=== PATIENT | female | born 1995 | race Caucasian/White ===

== ENCOUNTER 2017-07-12 10:39 | Emergency (ER) | payer SELFPAY ==
[~2017-07-12] VITALS: Ht 182.9 cm; Wt 65.8 kg
[~2017-07-12 10:39] MED LIST: LEVO500T2 PO; ONDA-42 SL; PHEN-640 PO
[2017-07-12] MEDS ORDERED: LACTATED RINGERS 1,000 ML IV ONE (12:37)
[2017-07-12] MEDS ORDERED: ONDANSETRON 4 MG/2 ML (SDV) Z0FRAN IVP ONE (12:45)
--- NOTE | 2017-07-12 12:45 | ED GI ---
General Chief Complaint: Abdominal/GI Problems Stated Complaint: N/V/D/UNTREATED CUT ON RIGHT KNEE Nursing Triage Note: PT REPORTS N/V/D STARTING AT 1999 YESTERDAY. PT REPORTS SHE HAS HAD 3 SIMILIAR EPISODES WITHIN THE LAST 2 MONTHS. Sepsis Screen: No Definite Risk Source of Information: Patient, Family (mom) Exam Limitations: No Limitations History of Present Illness Date Seen by Provider: Jul 12, 2017 Time Seen by Provider: 12:30 Initial Comments Patient presents to ER by private conveyance with a chief complaint that for the past couple days she's been having watery diarrhea, right knee pain where a week ago she cut open her knee after a fall and nausea and vomiting and she feels weak and tired and cannot keep fluids or food down. She's been having these episodes for her to 3 days at a time of nausea vomiting and diarrhea every 2 weeks for the past 3 months. First she thought it was just a bug like the flu but she's had no cough congestion, rhinorrhea, nasal congestion, fever. She has had malaise and chills and feels like she has a fever though. She has not taken anything for nor she had any workup done yet for this. She has a Mirena in that was recently traded out in March 2017 after the first one had been in for 5 years. Since that time she's had several episodes of bacterial vaginosis but she's had STI checks were negative. She is in a monogamous relationship and does not use condoms. She says she does not smoke cigarettes and only drinks occasionally every couple weeks. She does smoke marijuana however. When she has the nausea and vomiting episode she experiences quite a bit of epigastric pain. She has no other medical history or abdominal surgical history of significance. She does however have a history of having her bladder stretched because she had a lot of UTIs when she was a child. She also had asthma as a child but has not used inhalers for many years. Other than the Flagyl she has not been on any antibiotics in the past several months. Allergies and Home Medications Allergies Coded Allergies: No Known Drug Allergies (Unverified , 07/18/14) Home Medications Levofloxacin 500 Mg Tablet, 500 MG PO DAILY, #10 Prescribed by: BRIAN SANCHEZ on 02/15/152029 Ondansetron 4 Mg Tab.rapdis, 4 MG PO Q6H PRN for NAUSEA/VOMITING, #8 Ref 0 Prescribed by: KAMLA HAMMOND on 07/12/17 1430 Phenazopyridine HCl 200 Mg Tablet, 1 TAB PO TID, #15 Prescribed by: BRIAN SANCHEZ on 02/15/15 2030 Review of Systems Constitutional: chills, No fever, malaise EENTM: No Blurred Vision, No Double Vision Respiratory: Denies Cough, Denies Shortness of Air, Denies Wheezing Cardiovascular: Denies Chest Pain, Denies Edema, Denies Palpitations, Denies Syncope Gastrointestinal: See HPI, Denies Abdomen Distended, Abdominal Pain, Denies Constipated, Diarrhea, Nausea, Poor Fluid Intake, Vomiting Genitourinary: Denies Burning, Denies Discharge Musculoskeletal: No back pain, No joint pain Past Shslrmp-Eobkwh-Gzbccd Hx Patient Social History Alcohol Use: Rarely Uses Recreational Drug Use: No Smoking Status: Never a Smoker Recent Foreign Travel: No Contact w/Someone Who Travel: No Recent Infectious Disease Expo: No Immunizations Up To Date Tetanus Booster (TDap): More than 5yrs Seasonal Allergies Seasonal Allergies: No Surgeries History of Surgeries: Yes (R SHOULDER) Surgeries: Bladder Surgery Respiratory History of Respiratory Disorde: No Cardiovascular History of Cardiac Disorders: No Neurological History of Neurological Disord: No Reproductive System WALLPAPERER History: IUD Genitourinary Genitourinary Disorders: Bladder Infection Gastrointestinal History of Gastrointestinal Di: No Musculoskeletal History of Musculoskeletal Dis: No 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") HEENT History of HEENT Disorders: No Cancer History of Cancer: No Psychosocial History of Psychiatric Problem: No Integumentary History of Skin or Integumenta: No Blood Transfusions History of Blood Disorders: No Physical Exam Vital Signs VS - Last 72 Hours, by Label 07/12/17 11:31 Temp 97.9 Pulse 56 Resp 18 B/P (MAP) 133/65 (87) Pulse Ox 100 Capillary Refill : Less Than 3 Seconds General Appearance: no apparent distress, thin HEENT: PERRL/EOMI, normal ENT inspection, pharynx normal (oral mucosa is mildly dry) Respiratory: lungs clear, normal breath sounds, no respiratory distress, no accessory muscle use Cardiovascular: normal peripheral pulses, regular rate, rhythm, no edema Peripheral Pulses: 2+ Dorsalis Pedis (R), 2+ Left Dors-Pedis (L) Gastrointestinal: normal bowel sounds, soft, no organomegaly, tenderness (mild epigastric tenderness to palpation) Extremities: non-tender, normal inspection, no pedal edema, no calf tenderness Neurologic/Psychiatric: alert, normal mood/affect, oriented x 3 Skin: normal color, warm/dry Laceration Repair : Wound Location: Lower Extremities (right knee) Other Wound Location Right knee infrapatellar prepatellar fat pad laceration Wound Length (cm): 3 Wound's Depth, Shape: sub Q Wound Explored: contaminated Irrigated w/ Saline (ccs): 100 Betadine Prep?: Yes (and chlorhexidine soap water) Anesthesia: 1% Lidocaine Volume Anesthetic (ccs): 3 Wound Debrided: moderate Progress Wound was soaked with chlorhexidine soap water and then a large amount of a cellular debris/scabs/lint from her pants as well as a scant amount of purulence was removed. Wound was then infiltrated with lidocaine 1% 3 cc when the patient was numb went ahead and aggressively irrigated and explored the wound and found it was just in the prepatellar fat pad and not any deeper. Tendons and ligaments were not seen. Wound was irrigated with copious amounts of chlorhexidine normal saline and then dressed with a Band-Aid. We will allow the wound to heal by secondary intent Progress/Results/Core Measures Results/Orders Lab Results Laboratory Tests Test 07/12/17 11:50 07/12/17 11:58 07/12/17 12:30 Range/Units White Blood Count 14.1 H 4.3-11.0 10^3/uL Red Blood Count 5.06 4.35-5.85 10^6/uL Hemoglobin 15.9 11.5-16.0 G/DL Hematocrit 46 35-52 % Mean Corpuscular Volume 91 80-99 FL Mean Corpuscular Hemoglobin 31 25-34 PG Mean Corpuscular Hemoglobin Concent 35 32-36 G/DL Red Cell Distribution Width 12.9 10.0-14.5 % Platelet Count 284 130-400 10^3/uL Mean Platelet Volume 10.6 H 7.4-10.4 FL Neutrophils (%) (Auto) 89 H 42-75 % Lymphocytes (%) (Auto) 7 L 12-44 % Monocytes (%) (Auto) 3 0-12 % Eosinophils (%) (Auto) 1 0-10 % Basophils (%) (Auto) 0 0-10 % Neutrophils # (Auto) 12.5 H 1.8-7.8 X 10^3 Lymphocytes # (Auto) 1.0 1.0-4.0 X 10^3 Monocytes # (Auto) 0.4 0.0-1.0 X 10^3 Eosinophils # (Auto) 0.2 0.0-0.3 10^3/uL Basophils # (Auto) 0.0 0.0-0.1 10^3/uL Neutrophils % (Manual) 91 % Lymphocytes % (Manual) 5 % Monocytes % (Manual) 3 % Eosinophils % (Manual) 1 % Basophils % (Manual) 0 % Band Neutrophils 0 % Blood Morphology Comment NORMAL Erythrocyte Sedimentation Rate 1 0-20 MM/HR Sodium Level 138 135-145 MMOL/L Potassium Level 3.8 3.6-5.0 MMOL/L Chloride Level 104 98-107 MMOL/L Carbon Dioxide Level 24 21-32 MMOL/L Anion Gap 10 5-14 MMOL/L Blood Urea Nitrogen 10 7-18 MG/DL Creatinine 0.75 0.60-1.30 MG/DL Estimat Glomerular Filtration Rate > 60 BUN/Creatinine Ratio 13 Glucose Level 101 70-105 MG/DL Calcium Level 9.6 8.5-10.1 MG/DL Magnesium Level 2.1 1.8-2.4 MG/DL Total Bilirubin 1.4 H 0.1-1.0 MG/DL Aspartate Amino Transf (AST/SGOT) 19 5-34 U/L Alanine Aminotransferase (ALT/SGPT) 18 0-55 U/L Alkaline Phosphatase 72 40-136 U/L C-Reactive Protein High Sensitivity 0.13 0.00-0.50 MG/DL Total Protein 7.8 6.4-8.2 GM/DL Albumin 4.6 H 3.2-4.5 GM/DL Lipase < 4 L 8-78 U/L Urine Color YELLOW Urine Clarity CLEAR Urine pH 6 5-9 Urine Specific [place] 1.010 L 1.016-1.022 Urine Protein NEGATIVE NEGATIVE Urine Glucose (UA) NEGATIVE NEGATIVE Urine Ketones 2+ H NEGATIVE Urine Nitrite NEGATIVE NEGATIVE Urine Bilirubin NEGATIVE NEGATIVE Urine Urobilinogen NORMAL NORMAL MG/DL Urine Leukocyte Esterase 2+ H NEGATIVE Urine RBC (Auto) NEGATIVE NEGATIVE Urine RBC 2-5 H /HPF Urine WBC 0-2 /HPF Urine Squamous Epithelial Cells >50 H /HPF Urine Crystals NONE /LPF Urine Bacteria NEGATIVE /HPF Urine Casts NONE /LPF Urine Mucus NEGATIVE /LPF Urine Culture Indicated NO Urine Test NEGATIVE NEGATIVE Urine Opiates Screen NEGATIVE NEGATIVE Urine Oxycodone Screen NEGATIVE NEGATIVE Urine Methadone Screen NEGATIVE NEGATIVE Urine Propoxyphene Screen NEGATIVE NEGATIVE Urine Barbiturates Screen NEGATIVE NEGATIVE Ur Tricyclic Antidepressants Screen NEGATIVE NEGATIVE Urine Phencyclidine Screen NEGATIVE NEGATIVE Urine Amphetamines Screen NEGATIVE NEGATIVE Urine Methamphetamines Screen NEGATIVE NEGATIVE Urine Benzodiazepines Screen NEGATIVE NEGATIVE Urine Cocaine Screen NEGATIVE NEGATIVE Urine Cannabinoids Screen POSITIVE H NEGATIVE Micro Results Microbiology 07/12/17 Fecal Leukocyte Stain - Final, Resulted 07/12/17 Stool Culture, Resulted Pending My Orders Orders - KAMLA HAMMOND Cbc With Automated Diff (07/12/17 12:37) Comprehensive Metabolic Panel (07/12/17 12:37) Hs C Reactive Protein (07/12/17 12:37) Drug Screen Stat (Urine) (07/12/17 12:37) Hcg,Qualitative Urine (07/12/17 12:37) Magnesium (07/12/17 12:37) Ua Culture If Indicated (07/12/17 12:37) Stool Culture (07/12/17 12:37) Fecal Wbc (07/12/17 12:37) Erythrocyte Sedimentation Rate (07/12/17 12:37) Parasite Scrn Stool Giard Cryp (07/12/17 12:37) Saline Lock/Iv-Start (07/12/17 12:37) Lactated Ringers (Lr 1000 Ml Iv Solution (07/12/17 12:37) Ondansetron Injection (Zofran Injectio (07/12/17 12:45) Lipase (07/12/17 12:37) Manual Differential (07/12/17 11:50) Lidocaine 1% (Xylocaine 1%) (07/12/17 13:30) Medications Given in ED Current Medications Medications Dose Ordered Sig/Yadira Route Start Time Stop Time Status Last Admin Dose Admin Lactated Ringer's 1,000 ml @ 0 mls/hr Q0M ONCE IV 07/12/17 12:37 07/12/17 12:40 DC 07/12/17 12:49 0 MLS/HR Lidocaine HCl 50 ml ONCE ONCE IJ 07/12/17 13:30 07/12/17 13:31 DC 07/12/17 13:49 6 ML Ondansetron HCl 4 mg ONCE ONCE IVP 07/12/17 12:45 07/12/17 12:46 DC 07/12/17 12:49 4 MG Vital Signs/I&O Vital Sign - Last 12Hours 07/12/17 11:31 Temp 97.9 Pulse 56 Resp 18 B/P (MAP) 133/65 (87) Pulse Ox 100 Blood Pressure Mean: 87 Progress Note : Time: 12:45 Progress Note CBC and CMP as well as lipase. CMP which showed she had elevated liver enzymes he should think about hepatitis. Regular some fluids and Zofran to treat her symptoms. We have discussed the use of marijuana and cyclical vomiting syndrome' s. As far as her recurrent bacterial vaginosis have recommended that her partner wear condoms. Infectious diarrhea seems less likely however this is been going on for 3 months send for cultures and white blood cells. Departure Impression Impression: Primary Impression: Wound infection, posttraumatic Disposition: HOME, SELF-CARE Condition: Improved Departure-Patient Inst. Referrals: NO,LOCAL PHYSICIAN (PCP) Primary Care Physician VALENTIN CASTANEDA (Family) Primary Care Physician Patient Instructions: Diarrhea in Adolescents and Adults Add. Discharge Instructions: Drink plenty of fluids and eat a bland diet consisting of high fiber foods such as bananas, rice, applesauce and toast. Keep the wound clean with soap and water at least daily and change the dressing whenever becomes soiled or at least daily. Do not use antiseptics on your wound. If it becomes more red or starts to have drainage from it or you develop fevers you should follow-up with your primary care physician. Plan to follow up in the next 1-2 weeks with your primary care physician to follow up the results of the stool studies obtained today. You may also use Imodium 2 tablets to start and then one tablet every 4 hours afterwards until you get the diarrhea under control. If you're nausea comes back then you can take one tablet of Zofran and place it on your tongue and allow it to absorb through your mouth every 6 hours as needed. Follow-up the rest of your stool studies with your primary care physician. All discharge instructions reviewed with patient and/or family. Voiced understanding. Scripts Ondansetron (Ondansetron Odt) 4 Mg Tab.italia 4 MG PO Q6H Y for NAUSEA/VOMITING, #8 TAB 0 Refills Prov: KAMLA HAMMOND 07/12/17 Work/School Note: School/Childcare Release Date Seen in the Emergency Department: Jul 12, 2017 Time Dismissed from Emergency Department: 14:30 Return to School: Jul 14, 2017 Restrictions: No Restrictions KAMLA HAMMOND Jul 12, 2017 12:45
[2017-07-12 12:47] LABS: BILIRUBIN,URINE NEGATIVE (NEGATIVE); CLARITY,URINE CLEAR; COLOR,URINE YELLOW; GLUCOSE, URINE (UA) NEGATIVE (NEGATIVE); KETONES,URINE 2+ (NEGATIVE); LEUKOCYTE ESTERASE ,URINE 2+ (NEGATIVE); NITRITE,URINE NEGATIVE (NEGATIVE); PH,URINE 6 (5-9); PROTEIN,URINE NEGATIVE (NEGATIVE); UROBILINOGEN,URINE NORMAL (NORMAL)
[2017-07-12 12:47] LABS: BASOPHILS % (AUTO) 0 % (0-10); EOSINOPHILS # (AUTO) 0.2 10^3/uL (0.0-0.3); EOSINOPHILS % (AUTO) 1 % (0-10); HEMATOCRIT 46 % (35-52); HEMOGLOBIN 15.9 G/DL (11.5-16.0); LYMPHOCYTES % (AUTO) 7 % (12-44); MEAN CORPUSCULAR HEMOGLOBIN 31 PG (25-34); MEAN CORPUSCULAR HGB CONC 35 G/DL (32-36); MEAN CORPUSCULAR VOLUME 91 FL (80-99); MEAN PLATELET VOLUME 10.6 FL (7.4-10.4); MONOCYTES # (AUTO) 0.4 X 10^3 (0.0-1.0); MONOCYTES % (AUTO) 3 % (0-12); NEUTROPHILS # (AUTO) 12.5 X 10^3 (1.8-7.8); NEUTROPHILS % (AUTO) 89 % (42-75); PLATELET COUNT 284 10^3/uL (130-400); RED BLOOD COUNT 5.06 10^6/uL (4.35-5.85); RED CELL DISTRIBUTION WIDTH 12.9 % (10.0-14.5); WHITE BLOOD COUNT 14.1 10^3/uL (4.3-11.0)
[2017-07-12 12:48] LABS: HCG,QUALITATIVE URINE NEGATIVE (NEGATIVE)
[2017-07-12 12:54] LABS: BACTERIA,URINE NEGATIVE /HPF; WBC,URINE 0-2 /HPF
[2017-07-12 12:55] LABS: SQUAMOUS EPITHELIAL CELL,UR >50 /HPF
[2017-07-12 12:57] LABS: AMPHETAMINE SCREEN, URINE NEGATIVE (NEGATIVE); BARBITURATE SCREEN URINE NEGATIVE (NEGATIVE); BENZODIAZEPINES SCREEN URINE NEGATIVE (NEGATIVE); CANNABINOID SCREEN, URINE POSITIVE (NEGATIVE); COCAINE SCREEN URINE NEGATIVE (NEGATIVE); METHADONE STAT NEGATIVE (NEGATIVE); METHAMPHETAMINE SCREEN URINE S NEGATIVE (NEGATIVE); OPIATE SCREEN URINE NEGATIVE (NEGATIVE); OXYCODONE STAT NEGATIVE (NEGATIVE); PROPOXYPHENE STAT NEGATIVE (NEGATIVE); TRICYCLIC ANTIDEPRESSANTS SCRE NEGATIVE (NEGATIVE)
[2017-07-12 12:58] LABS: BAND NEUTROPHILS 0 %; BASOPHILS % (MANUAL) 0 %; EOSINOPHILS % (MANUAL) 1 %; LYMPHOCYTES % (MANUAL) 5 %; MONOCYTES % (MANUAL) 3 %; NEUTROPHILS % (MANUAL) 91 %; RBC MORPH NORMAL
[2017-07-12 13:03] LABS: ALANINE AMINOTRANSFERASE 18 U/L (0-55); ALBUMIN 4.6 GM/DL (3.2-4.5); ALKALINE PHOSPHATASE 72 U/L (40-136); BILIRUBIN,TOTAL 1.4 MG/DL (0.1-1.0); BUN/CREATININE RATIO 13; CALCIUM 9.6 MG/DL (8.5-10.1); CARBON DIOXIDE 24 MMOL/L (21-32); CHLORIDE 104 MMOL/L (98-107); CREATININE SERUM 0.75 MG/DL (0.60-1.30); GFR ESTIMATED > 60; GLUCOSE 101 MG/DL (70-105); LIPASE < 4 U/L (8-78); MAGNESIUM 2.1 MG/DL (1.8-2.4); POTASSIUM 3.8 MMOL/L (3.6-5.0); SODIUM 138 MMOL/L (135-145); TOTAL PROTEIN 7.8 GM/DL (6.4-8.2)
[2017-07-12 13:08] LABS: ERYTHROCYTE SEDIMENTATION RATE 1 MM/HR (0-20)
[2017-07-12] MEDS ORDERED: LIDOCAINE 1% INJ 50 ML (XYLOCAINE) VIAL IJ ONE (13:30)
[2017-07-12] MEDS ORDERED: ONDA4TAB11 PO ×2 (14:30→15:16)
[2017-07-12 15:35] VITALS: BP 126/80
--- OUTSIDE RECORDS SUMMARY | 2017-07-16 04:51 | XMS REPORT ---
Author [facility] Address Unknown Phone Unavailable Care Team Providers Care Connie Scratcher Name Role Phone Kamron Hicks PCP Encounter [facility] [id number] Date(s): 09/29/15 - [facility]29/[facility] [address] [place] [address] Attending Physician: Alma Loredo Non-Staff Admitting Physician: Alma Loredo Non-Staff Referring Physician: Alma Loredo Non-Staff Vital Signs No data available for this section Problem List No data available for this section Allergies, Adverse Reactions, Alerts No data available for this section Medications No data available for this section Results No data available for this section Immunizations No data available for this section Procedures No data available for this section Social History No data available for this section Assessment and Plan No data available for this section
--- OUTSIDE RECORDS SUMMARY | 2017-07-16 04:51 | XMS REPORT ---
Author Author [facility] Organization [facility] Address Unknown Phone Unavailable Care Team Providers Care 5Th Grade Teacher Name Role Phone Kamron Hicks PCP Encounter [id number] [id number] Date(s): 12/18/15 - 12/18/15 [facility] [address] [place] [id number] Attending Physician: Jerel Oscar MD Vital Signs No data available for this section Problem List Diagnosis Diagnosis Type Effective Dates Health Status Clinical Service Informant Shoulder pain Discharge 12/18/15 Non-Specified Diagnosis Allergies, Adverse Reactions, Alerts No data available for this section Medications No Known Medications Results No data available for this section Immunizations No data available for this section Procedures No data available for this section Social History No data available for this section Assessment and Plan No data available for this section
--- OUTSIDE RECORDS SUMMARY | 2017-07-16 04:51 | XMS REPORT | Continuity of Care Document ---
Author Author [employer] Organization [facility] Address Unknown Phone Unavailable Care Team Providers Care Family Day Care Worker Name Role Phone [employer] Unavailable Unavailable Problems Problem Status Onset Date Classification Date Reported Comments Source Shoulder joint pain (finding) 12/18/2015 Diagnosis 2015 [facility] Acute sinusitis, unspecified 08/21/2014 Diagnosis 2014 [facility] Medications Medication Details Route Status Patient Instructions Ordering Provider Order Date Source No Known Medications No known medications Active [facility] Allergies, Adverse Reactions, Alerts Substance Category Reaction Severity Reaction type Status Date Reported Comments Source NKA drug allergy Allergy Active [facility] D[facility] Products Assertion Lactose intolerance Food allergy [facility] Immunizations Results Vital Signs Encounters Location Location Details Encounter Type Encounter Number Reason For Visit Attending Provider ADM Date DC Date Status Source [facility] [id number] Clinic ( Outpatient) [id number] Jarrodrachelnathan Zacarias 05/15/2013 Active [facility] [id number] Clinic ( Outpatient) [id number] . LAB [facility] 05/02/[address] [facility] [id number] . LAB [facility] 05/02/2014 05/03/2014 [facility] [id number] Clinic ( Outpatient) [id number] Jez Gonzalez 08/21/[address] [facility] [id number] Jez Gonzalez 08/21/2014 08/22/2014 [facility] [id number] Clinic ( Outpatient) [id number] Jerel Oscar 10/07/2014 Active [facility] [id number] Jerel Oscar 10/07/2014 10/08/2014 [facility] & [facility] [id number] Outpatient [id number] Alma Loredo 09/29/2015 09/29/2015 [facility]. O [id number] Clinic ( Outpatient) [id number] Jerel Oscar 09/29/2015 Active [facility]. Outpatient [id number] Alma Eagleburn 09/29/2015 09/30/2015 [facility]. [facility] [id number] Jerel Oscar 09/29/2015 09/30/2015 [id number] [id number] Jerel Oscar 12/18/2015 Active [facility] [id number] Jerel Oscar 12/18/2015 12/19/2015 [facility] Procedures Procedure Code Date Perfomer Comments Source none [facility] Plan of Care Social History Assessment and Plan Family History Advance Directives Functional Status
--- OUTSIDE RECORDS SUMMARY | 2017-07-16 04:51 | XMS REPORT ---
Author Author [facility] Organization [facility] Address Unknown Phone Unavailable Care Team Providers Care Motor Tune Up Specialist Name Role Phone Kamron Hicks PCP Encounter [id number] [id number] Date(s): 09/29/15 - 09/29/15 [facility] [id number] [place] [phone]- Attending Physician: Jerel Oscar MD Vital Signs No data available for this section Problem List Diagnosis Diagnosis Type Effective Dates Health Status Clinical Service Informant Shoulder pain Discharge 09/29/15 Non-Specified Diagnosis Allergies, Adverse Reactions, Alerts No data available for this section Medications No Known Medications Results No data available for this section Immunizations No data available for this section Procedures No data available for this section Social History No data available for this section Assessment and Plan No data available for this section
--- OUTSIDE RECORDS SUMMARY | 2017-07-16 04:52 | XMS REPORT ---
Author Organization Unknown Address Unknown Phone Unavailable Care Team Providers Care Bin Worker Name Role Phone Kamron Hicks PCP Encounter [id number] [id number] Date(s): 05/02/14 - 05/02/[address] [address] [phone] Attending Physician: LAB [facility] Vital Signs No data available for this section Problem List No data available for this section Allergies, Adverse Reactions, Alerts No Known Allergies Medications No data available for this section Results No data available for this section Immunizations No data available for this section Procedures No data available for this section Social History No data available for this section Assessment and Plan No data available for this section
--- OUTSIDE RECORDS SUMMARY | 2017-07-16 04:52 | XMS REPORT ---
Author Author [facility] Organization [facility] Address Unknown Phone Unavailable Care Team Providers Care Supply Room Clerk Name Role Phone Kamron Hicks PCP Encounter [id number] [id number] Date(s): 08/21/14 - 08/21/[address] [address] Discharge Diagnosis: Acute sinusitis Discharge Diagnosis: Acute sinusitis Attending Physician: Jez Gonzalez APRN Vital Signs No data available for this section Problem List No data available for this section Allergies, Adverse Reactions, Alerts No Known Medication Allergies Substance Reaction Severity Status Dairy Products Lactose intolerance Active Medications No Known Medications Results No data available for this section Immunizations No data available for this section Procedures Procedure Date Related Diagnosis Body Site none Social History No data available for this section Assessment and Plan No data available for this section
--- OUTSIDE RECORDS SUMMARY | 2017-07-16 04:52 | XMS REPORT | Continuity of Care Document ---
Author Author [facility] Organization [facility] Address Unknown Phone Unavailable Allergies Active Description Code Type Severity Reaction Onset Reported/Identified Relationship to Patient Clinical Status Yes No Known Drug Allergies [id number] Drug Allergy Unknown N/A 07/18/2014 Medications There is no data. Problems Date Dx Coded Attending Type Code Diagnosis Diagnosed By 07/18/2014 SYDNI AIKEN, TIERA Chavez Ot 787.01 NAUSEA WITH VOMITING 07/18/2014 SYDNI AIKEN, TIERA Chavez Ot 787.91 DIARRHEA 07/18/2014 SYDNI AIKEN, TIERA Chavez Ot 789.09 ABDOMINAL PAIN, OTHER SPECIFIED SITE 02/15/2015 BRIAN SANCHEZ DO Ot 599.0 URIN TRACT INFECTION NOS 02/15/2015 BRIAN SANCHEZ DO Ot 784.0 HEADACHE Procedures There is no data. Results Test Result Range Complete blood count (CBC) with automated white blood cell (WBC) differential - 07/12/17 11:50 Blood leukocytes automated count (number/volume) 14.1 10*3/uL 4.3-11.0 Blood erythrocytes automated count (number/volume) 5.06 10*6/uL 4.35-5.85 Venous blood hemoglobin measurement (mass/volume) 15.9 g/dL 11.5-16.0 Blood hematocrit (volume fraction) 46 % 35-52 Automated erythrocyte mean corpuscular volume 91 [foz_us] 80-99 Automated erythrocyte mean corpuscular hemoglobin (mass per erythrocyte) 31 pg 25-34 Automated erythrocyte mean corpuscular hemoglobin concentration measurement ( mass/volume) 35 g/dL 32-36 Automated erythrocyte distribution width ratio 12.9 % 10.0-14.5 Automated blood platelet count (count/volume) 284 10*3/uL 130-400 Automated blood platelet mean volume measurement 10.6 [foz_us] 7.4-10.4 Automated blood neutrophils/100 leukocytes 89 % 42-75 Automated blood lymphocytes/100 leukocytes 7 % 12-44 Blood monocytes/100 leukocytes 3 % 0-12 Automated blood eosinophils/100 leukocytes 1 % 0-10 Automated blood basophils/100 leukocytes 0 % 0-10 Blood neutrophils automated count (number/volume) 12.5 10*3 1.8-7.8 Blood lymphocytes automated count (number/volume) 1.0 10*3 1.0-4.0 Blood monocytes automated count (number/volume) 0.4 10*3 0.0-1.0 Automated eosinophil count 0.2 10*3/uL 0.0-0.3 Automated blood basophil count (count/volume) 0.0 10*3/uL 0.0-0.1 Blood manual differential performed detection - 07/12/17 11:50 Blood monocytes/100 leukocytes 3 % NRG Manual blood segmented neutrophils/100 leukocytes 91 % NRG Blood band neutrophils/100 leukocytes 0 % NRG Manual blood lymphocytes/100 leukocytes 5 % NRG Manual eosinophils/100 leukocytes in nose 1 % NRG Manual blood basophils/100 leukocytes 0 % NRG Blood erythrocyte morphology finding identification NORMAL NRG Erythrocyte sedimentation rate by westergren method - 07/12/17 11:50 Erythrocyte sedimentation rate by westergren method 1 mm 0-20 Comprehensive metabolic panel - 07/12/17 11:58 Serum or plasma sodium measurement (moles/volume) 138 mmol/L 135-145 Serum or plasma potassium measurement (moles/volume) 3.8 mmol/L 3.6-5.0 Serum or plasma chloride measurement (moles/volume) 104 mmol/L 98-107 Carbon dioxide 24 mmol/L 21-32 Serum or plasma anion gap determination (moles/volume) 10 mmol/L 5-14 Serum or plasma urea nitrogen measurement (mass/volume) 10 mg/dL 7-18 Serum or plasma creatinine measurement (mass/volume) 0.75 mg/dL 0.60-1.30 Serum or plasma urea nitrogen/creatinine mass ratio 13 NRG Serum or plasma creatinine measurement with calculation of estimated glomerular filtration rate > NRG Serum or plasma glucose measurement (mass/volume) 101 mg/dL 70-105 Serum or plasma calcium measurement (mass/volume) 9.6 mg/dL 8.5-10.1 Serum or plasma total bilirubin measurement (mass/volume) 1.4 mg/dL 0.1-1.0 Serum or plasma alkaline phosphatase measurement (enzymatic activity/volume) 72 U/L 40-136 Serum or plasma aspartate aminotransferase measurement (enzymatic activity/ volume) 19 U/L 5-34 Serum or plasma alanine aminotransferase measurement (enzymatic activity/volume ) 18 U/L 0-55 Serum or plasma protein measurement (mass/volume) 7.8 g/dL 6.4-8.2 Serum or plasma albumin measurement (mass/volume) 4.6 g/dL 3.2-4.5 Magnesium - 07/12/17 11:58 Magnesium 2.1 mg/dL 1.8-2.4 Lipase - 07/12/17 11:58 Lipase < U/L 8-78 Serum or plasma C reactive protein measurement (mass/volume) - 07/12/17 11:58 Serum or plasma C reactive protein measurement (mass/volume) 0.13 mg /dL 0.00-0.50 Urine beta human chorionic gonadotropin (hCG) measurement - 07/12/17 12:30 Urine beta human chorionic gonadotropin (hCG) measurement NEGATIVE NEGATIVE Complete urinalysis with reflex to culture - 07/12/17 12:30 Urine color determination YELLOW NRG Urine clarity determination CLEAR NRG Urine pH measurement by test strip 6 5-9 Specific gravity of urine by test strip 1.010 1.016- 1.022 Urine protein assay by test strip, semi-quantitative NEGATIVE NEGATIVE Urine glucose detection by automated test strip NEGATIVE NEGATIVE Erythrocytes detection in urine sediment by light microscopy NEGATIVE NEGATIVE Urine ketones detection by automated test strip 2+ NEGATIVE Urine nitrite detection by test strip NEGATIVE NEGATIVE Urine total bilirubin detection by test strip NEGATIVE NEGATIVE Urine urobilinogen measurement by automated test strip (mass/volume) NORMAL NORMAL Urine leukocyte esterase detection by dipstick 2+ NEGATIVE Automated urine sediment erythrocyte count by microscopy (number/high power field) [HPF] NRG Automated urine sediment leukocyte count by microscopy (number/high power field ) [HPF] NRG Bacteria detection in urine sediment by light microscopy NEGATIVE NRG Squamous epithelial cells detection in urine sediment by light microscopy >50 NRG Crystals detection in urine sediment by light microscopy NONE NRG Casts detection in urine sediment by light microscopy NONE NRG Mucus detection in urine sediment by light microscopy NEGATIVE NRG Complete urinalysis with reflex to culture NO NRG Urine drug screening test - 07/12/17 12:30 Urine phencyclidine detection by screening method NEGATIVE NEGATIVE Urine benzodiazepines detection by screening method NEGATIVE NEGATIVE Urine cocaine detection NEGATIVE NEGATIVE Urine amphetamines detection by screening method NEGATIVE NEGATIVE Urine methamphetamine detection by screening method NEGATIVE NEGATIVE Urine cannabinoids detection by screening method POSITIVE NEGATIVE Urine opiates detection by screening method NEGATIVE NEGATIVE Urine barbiturates detection NEGATIVE NEGATIVE Screening urine tricyclic antidepressants detection NEGATIVE NEGATIVE Urine methadone detection by screening method NEGATIVE NEGATIVE Urine oxycodone detection NEGATIVE NEGATIVE Urine propoxyphene detection NEGATIVE NEGATIVE Stool leukocytes detection by light microscopy - 07/12/17 12:30 FECAL WBC RESULTS NEGATIVE FOR WBC'S NRG FECAL NOTE FECAL LEUKOCYTES MAY BE INTERMITTENTLY PRESENT OR NRG FECAL NOTE UNEVENLY DISTRIBUTED IN STOOL SPECIMENS, AND WBC NRG FECAL NOTE MORPHOLOGY DEGRADES DURING TRANSPORT NRG FECAL NOTE NOTE: NRG Stool bacteria identification by culture - 07/12/17 12:30 Stool bacteria identification by culture N2 NRG [id number] - 07/12/17 12:30 [id number] Specimen held 5 days if further workup is needed. NRG Encounters ACCT No. Visit Date/Time Discharge Status Pt. Type Provider Facility Loc./Unit Complaint [id number] 07/12/2017 10:42:00 07/12/2017 15:35:00 DIS Emergency STEPHANY AIKEN, KAMLA Swartz [facility] ER N/V/D/UNTREATED CUT ON RIGHT KNEE [id number] 02/15/2015 16:46:00 02/15/2015 20:40:00 DIS Emergency BRIAN SANCHEZ DO [facility] ER HEADACHE,FEVER,BACK PAIN [id number] 07/18/2014 07:11:00 07/18/2014 09:46:00 DIS Emergency SYDNI AIEKN, TIERA Chavez [facility] ER FLU SYMPTOMS
--- OUTSIDE RECORDS SUMMARY | 2017-07-16 04:52 | XMS REPORT ---
Author Author [facility] Organization [facility] Address Unknown Phone Unavailable Care Team Providers Care Strickler Attendant Name Role Phone Kamron Hicks PCP Encounter [id number] Date(s): 10/07/14 - 10/07/14 [facility] [address] [place] [phone] Attending Physician: Jerel Oscar MD Vital Signs [...]
== END 2017-07-12 15:35 | disposition home or self-care (01) ==
LOC: EDUNIT# 10:39 → ER 10:42
DX: T79.8XXA Other early complications of trauma, initial encounter (principal); S81.001A Unspecified open wound, right knee, initial encounter; Z87.448 Personal history of other diseases of urinary system; Z97.5 Presence of (intrauterine) contraceptive device; W19.XXXA Unspecified fall, initial encounter
CPT/HCPCS: 36415; 80053; 80306; 81000; 83690; 83735; 84703; 85007; 85027; 85652; 86141; 87045; 87046; 87328; 87329; 89055; 96361; 96374